=== PATIENT | male | born 1985 | race Caucasian/White ===

== ENCOUNTER 2017-12-02 13:08 | Emergency (ER) | payer SELFPAY ==
[~2017-12-02] VITALS: Ht 162.6 cm; Wt 72.0 kg
[~2017-12-02 13:08] MED LIST: CYCL10TA PO; NAPR500T2 PO
[2017-12-02 13:12] VITALS: BP 119/72; PULSE 87; RESP 16; TEMP 98.3; O2SAT 98
--- NOTE | 2017-12-02 13:43 | PD ---
HPI Chief Complaint: Numbness/Tingling Time Seen by Provider: 13:33 Travel History International Travel<30 days: No Contact w/Intl Traveler<30days: No Traveled to known affect area: No History of Present Illness HPI This 32-year-old male is complaining of tingling in his right arm. He says this is been going on for about 2 weeks. It is intermittent. He says it only lasts 15-20 seconds and can usually occurs about twice a day. Sometimes it seems to be triggered by certain movements of his arm. He has not noted any weakness in the arm. He does not have headaches. His legs have not been affected. 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 There is no history of trauma. PFSH Past Medical History Hx Anticoagulant Therapy: No Diabetes: No Diminished Hearing: No ?: Not Past Surgical History Ear Surgery: Yes (SEVERAL EAR SURGERIES AND THROAT SUREGERY A CHILD) Other Surgery: Yes (PHARYNGEAL FLAP, MASTOID SX) Social History Alcohol Use: Yes (socially) Tobacco Use: Yes (1 ppd) Substance Use: Yes (marijuana) Allergies-Medications (Allergen,Severity, Reaction): Coded Allergies: No Known Allergies (Verified , 05/08/16) Reported Meds & Prescriptions Reported Meds & Active Scripts Active Flexeril (Cyclobenzaprine HCl) 10 Mg Tab 10 Mg PO TID Naproxen 500 Mg Tab 500 Mg PO BID PRN Review of Systems Except as stated in HPI: all other systems reviewed are Neg General / Constitutional: No: Fever, Chills Eyes: No: Diploplia HENT: No: Headaches Respiratory: No: Cough, Shortness of Breath Gastrointestinal: No: Vomiting Musculoskeletal: No: Weakness Neurologic: Positive: Sensory Disturbance Psychiatric: No: Anxiety, Depression Hematologic/Lymphatic: No: Easy Bruising Physical Exam Narrative GENERAL: Well-developed male SKIN: Focused skin assessment warm/dry. HEAD: Atraumatic. Normocephalic. EYES: Pupils equal and round. No scleral icterus. No injection or drainage. ENT: No nasal bleeding or discharge. Mucous membranes pink and moist. NECK: Trachea midline. No JVD. There is no tenderness to palpation of the posterior neck CARDIOVASCULAR: Regular rate and rhythm. No murmur appreciated. RESPIRATORY: No accessory muscle use. Clear to auscultation. Breath sounds equal bilaterally. GASTROINTESTINAL: Abdomen soft, non-tender, nondistended. Hepatic and splenic margins not palpable. MUSCULOSKELETAL: No obvious deformities. No clubbing. No cyanosis. No edema. NEUROLOGICAL: Awake and alert. No obvious cranial nerve deficits. Motor grossly within normal limits. Normal speech. There is no sensory deficit on the right arm. Nerves of the hand were checked and appear to be intact PSYCHIATRIC: Appropriate mood and affect; insight and judgment normal. Data Data Last Documented VS Vital Signs Date Time Temp Pulse Resp B/P (MAP) Pulse Ox O2 Delivery O2 Flow Rate FiO2 12/02/17 13:12 98.3 87 16 119/72 (88) 98 Orders Orders Spine, Cervical Compl([id number]) (12/02/17 13:39) [facility] Medical Decision Making Medical Screen Exam Complete: Yes Emergency Medical Condition: Yes Medical Record Reviewed: Yes Differential Diagnosis Differential includes carpal tunnel, radiculopathy, paresthesias Narrative Course Symptoms seem to involve the entire arm the time of my exam there is no deficit. X-ray of the neck shows osteopenia but is otherwise negative. Patient is stable for discharge. Diagnosis Primary Impression: Arm paresthesia, right Additional Instructions: Follow-up with neurologist if symptoms persist Disposition: 01 DISCHARGE HOME Condition: Stable Isaías Aldridge MD Dec 02, 2017 13:43
--- NOTE | 2017-12-02 14:15 | RADRPT ---
EXAM DATE: 12/02/2017 1:58 PM EDT AGE/SEX: 32 years / Male INDICATIONS: Right arm tingling & numbness with no known injury. CLINICAL DATA: This is the patient's initial encounter. Patient reports that signs and symptoms have been present for 2 weeks and indicates a pain score of 0/10. MEDICAL/SURGICAL HISTORY: None. . Pharyngeal flap & mastoid surgery. COMPARISON: No prior [facility] exams available for comparison. FINDINGS: No appreciable subluxation or soft tissue swelling is seen. Disc spaces are well maintaine d. The neural foramina are patent bilaterally. There is diffuse osteopenia. CONCLUSION: Unremarkable study except for osteopenia. Electronically signed by: Roosevelt Jimenez MD 12/02/2017 2:14 PM EDT
[2017-12-02 15:13] VITALS: BP 110/65; PULSE 66; RESP 16; O2SAT 98
--- NOTE | 2017-12-03 15:14 | EKG ---
Date Performed: 12/02/2017 Time Performed: 13:19:08 PTAGE: 32 years EKG: Sinus rhythm WITH SINUS ARRHYTHMIA NORMAL ECG INTERPRETATION BASED ON A DEFAULT AGE OF 38 YEARS NO PREVIOUS TRACING DOCTOR: Comfort Velazquez Interpretating Date/Time 12/03/2017 15:13:59
== END 2017-12-02 15:15 | disposition home or self-care (01) ==
LOC: PHED 13:08
DX: R20.2 Paresthesia of skin (principal); F17.200 Nicotine dependence, unspecified, uncomplicated; F12.90 Cannabis use, unspecified, uncomplicated
CPT/HCPCS: 72050; 93005; 99284